=== PATIENT | female | born 2000 | race African-American/Black ===

== ENCOUNTER 2024-09-15 21:01 | Emergency (ER) | payer MEDICAID ==
[~2024-09-15] VITALS: Ht 167.6 cm; Wt 71.0 kg
[2024-09-15 21:05] VITALS: O2SAT 99
[2024-09-15] MEDS: SODIUM CHLORIDE 0.9% 1,000 ML IV ONE (21:15)
[2024-09-15] MEDS: MORPHINE SULFATE 2 MG/ML INJ (NOT FOR IM USE) IV ONE (23:02)
[2024-09-15] MEDS: ONDANSETRON HCL 4MG/2ML INJ IV ONE (23:02)
[2024-09-16 03:20] LABS: BASOPHILS % 0.5 % (0.0-2.0); DIFFERENTIAL COMMENT 0; EOSINOPHILS % 2.2 % (0.0-5.0); HEMATOCRIT. 28.8 % (36.0-48.0); HEMOGLOBIN. 8.8 g/dL (12.0-16.0); MEAN CORPUSCULAR HGB CONC 30.5 g/dL (31.0-37.0); MEAN CORPUSCULAR VOLUME 75.4 fL (81.0-99.0); MEAN PLATELET VOLUME 9.1 fl (7.4-10.4); MONOCYTES % 5.2 % (2.0-8.0); NEUTROPHILS % 54.1 % (40.0-76.0); PLATELET 209 x1000/uL (130-400); RED BLOOD CELL COUNT 3.82 mill/uL (4.2-5.4); RED CELL DISTRIBUTION WIDTH 18.4 % (11.6-14.6); WHITE BLOOD COUNT 5.8 x1000/uL (4.5-11.0)
[2024-09-16 03:23] LABS: CHLORIDE 117 mEq/L (98-107); POTASSIUM 3.5 mEq/L (3.5-5.1); SODIUM 147 mEq/L (136-145)
[2024-09-16 03:24] LABS: CALCIUM 7.9 mg/dL (8.7-10.4); CARBON DIOXIDE 24 mEq/L (21-32)
[2024-09-16 03:29] LABS: CREATININE 0.7 mg/dL (0.6-1.0); ETHANOL BLOOD 137 mg/dL (<10); GLUCOSE 77 mg/dL (70-105); UREA NITROGEN BLOOD 6 mg/dL (9-23)
[2024-09-16] MEDS ORDERED: TOPUD MT (04:20)
[2024-09-16 04:24] VITALS: BP 95/60; PULSE 80; RESP 14; TEMP 36.72516; O2SAT 99
[2024-09-16 04:36] LABS: HCG SCREEN NEGATIVE
[2024-09-16 05:48] VITALS: TEMP 98.1
[2024-09-16] MEDS: ACETAMINOPHEN 325MG TABLET PO NR (05:48)
== END 2024-09-16 06:03 | disposition home or self-care (01) ==
LOC: ER 21:01
DX: S09.90XA Unspecified injury of head, initial encounter (principal); M25.512 Pain in left shoulder; V49.49XA Driver injured in collision with other motor vehicles in traffic accident, initial encounter; Y93.89 Activity, other specified; Y92.89 Other specified places as the place of occurrence of the external cause; Y99.8 Other external cause status
CPT/HCPCS: 36415; 73030; 70450; 70486; 72125; 96361; 96374; 96375; 99285; 80048; 80320; 84703; 85025; J2405; J2270; J7030; G0480